=== PATIENT | female | born 1980 | race Caucasian/White ===

== ENCOUNTER → 2021-11-24 | Outpatient (CLI) | payer OTHER | END | disposition home or self-care (01) | LOC: RAD 10:10 | DX: M25.671 Stiffness of right ankle, not elsewhere classified (principal) ==

== ENCOUNTER 2022-05-08 08:38 | Emergency (ER) | payer OTHER ==
[~2022-05-08] VITALS: Ht 162.6 cm; Wt 64.9 kg
== END 2022-05-08 13:09 | disposition home or self-care (01) ==
LOC: ER 08:38
DX: R42 Dizziness and giddiness (principal); Z88.0 Allergy status to penicillin

== ENCOUNTER 2022-09-13 18:43 | Emergency (ER) | payer OTHER ==
[~2022-09-13] VITALS: Ht 162.6 cm; Wt 79.4 kg
[2022-09-14] MEDS ORDERED: DICLOFENAC POTA50 MG PO (00:25)
== END 2022-09-14 00:41 | disposition home or self-care (01) ==
LOC: ER 18:43
DX: S89.92XA Unspecified injury of left lower leg, initial encounter (principal); W19.XXXA Unspecified fall, initial encounter; Y93.9 Activity, unspecified; Y92.9 Unspecified place or not applicable

== ENCOUNTER 2023-10-31 13:32 | Emergency (ER) | payer OTHER ==
[~2023-10-31] VITALS: Ht 167.6 cm; Wt 65.8 kg
[~2023-10-31 13:32] MED LIST: DICLOFENAC POTA50 MG PO
[2023-10-31] MEDS ORDERED: NORFLEX100MG PO (18:21)
[2023-10-31] MEDS ORDERED: DICLOFENAC SODI50 MG PO (18:21)
== END 2023-10-31 20:51 | disposition home or self-care (01) ==
LOC: ER 13:32
DX: S00.93XA Contusion of unspecified part of head, initial encounter (principal); X58.XXXA Exposure to other specified factors, initial encounter; Y93.89 Activity, other specified; Y92.89 Other specified places as the place of occurrence of the external cause; Y99.9 Unspecified external cause status; Z88.0 Allergy status to penicillin